=== PATIENT | female | born 1960 | race Caucasian/White ===

== ENCOUNTER → 2020-09-16 | Outpatient (CLI) | payer OTHER ==
[~2020-09-16] MED LIST: CLOB.05TO BOTHEARS; ZOLP5 PO
[2020-09-17 17:07] LABS: HPV 16 Negative (Negative); HPV 18 Negative (Negative); HPV OTHER HR TYPES Negative (Negative)
== END | disposition home or self-care (01) ==
LOC: LAB 13:51 → LAB SHORT 13:51
PROVIDERS: Obstetrics & Gynecology
DX: Z01.419 Encounter for gynecological examination (general) (routine) without abnormal findings (principal)
CPT/HCPCS: 87624; G0123

== ENCOUNTER → 2023-09-21 | Outpatient (CLI) | payer OTHER ==
[~2023-09-21] MED LIST changes: +ELIQUIS2.5 M1 PO; +HYDROCODONE-AC1 EA19 PO; +ONDA4ODT MM; +OXAYDO5 M1 PO
[2023-09-21 14:14] LABS: BASOPHILS ABSOLUTE AUTO 0.03 K/mm3 (0.00-0.23); BASOPHILS PERCENT AUTO 0 % (0-2); EOSINOPHILS ABSOLUTE AUTO 0.05 K/mm3 (0.00-0.68); EOSINOPHILS PERCENT AUTO 1 % (0-6); Hemoglobin 9.4 g/dL (11.5-16.0); IMMATURE GRAN ABSOLUTE AUTO 0.07 K/mm3 (0.00-0.10); IMMATURE GRAN PERCENT AUTO 1 % (0-1); LYMPHOCYTES ABSOLUTE AUTO 1.24 K/mm3 (0.84-5.20); LYMPHOCYTES PERCENT AUTO 12 % (21-46); MONOCYTES ABSOLUTE AUTO 0.81 K/mm3 (0.16-1.47); MONOCYTES PERCENT AUTO 8 % (4-13); Mean Corpuscular HGB 29.5 pg (26.0-34.0); Mean Corpuscular HGB Conc 31.3 g/dL (31.5-36.5); Mean Corpuscular Volume 94 fL (80-100); NEUTROPHILS ABSOLUTE AUTO 8.38 K/mm3 (1.96-9.15); NEUTROPHILS PERCENT AUTO 79 % (41-73); Platelet Count 634 K/mm3 (150-400); RDW Coefficient Variation 16.6 % (11.7-14.2); RDW Standard Deviation 55.7 fL (35.1-46.3); Red Blood Cell Count 3.19 M/mm3 (3.80-5.20); White Blood Cell Count 10.58 K/mm3 (4.00-11.30)
[2023-09-21 14:31] LABS: Albumin, Blood 2.7 g/dL (3.4-5.0); Albumin/Globulin Ratio 0.7 (0.8-1.8); Bilirubin, Total 0.3 mg/dL (0.1-1.0); Bun/Creatinine Ratio 24.2 (12.0-20.0); Calcium, Blood 8.7 mg/dL (8.5-10.1); Creatinine, Blood 0.5 mg/dL (0.40-1.00); Globulin, Blood 3.7 g/dL (2.2-4.0); Potassium, Blood 4.2 mmol/L (3.5-5.5); Total Protein, Blood 6.4 g/dL (6.4-8.2)
== END | disposition home or self-care (01) ==
LOC: LAB SHORT 12:32 → LAB 12:32
PROVIDERS: Internal Medicine Hematology & Oncology
DX: C56.9 Malignant neoplasm of unspecified ovary (principal)
CPT/HCPCS: 80053; 85025; 86304

== ENCOUNTER 2023-09-22 15:29 | Emergency (ER) | payer OTHER ==
[~2023-09-22] VITALS: Ht 170.2 cm; Wt 54.4 kg
[~2023-09-22 15:29] MED LIST changes: -ELIQUIS2.5 M1 PO; -HYDROCODONE-AC1 EA19 PO
[2023-09-22] MEDS ORDERED: Ketorolac Tromethamine 15mg Vial IV ONE (16:05)
[2023-09-22 16:22] LABS: BASOPHILS ABSOLUTE AUTO 0.04 K/mm3 (0.00-0.23); BASOPHILS PERCENT AUTO 0 % (0-2); EOSINOPHILS ABSOLUTE AUTO 0.09 K/mm3 (0.00-0.68); EOSINOPHILS PERCENT AUTO 1 % (0-6); Hematocrit 29.3 % (33.0-51.0); Hemoglobin 9.4 g/dL (11.5-16.0); IMMATURE GRAN ABSOLUTE AUTO 0.05 K/mm3 (0.00-0.10); IMMATURE GRAN PERCENT AUTO 1 % (0-1); LYMPHOCYTES ABSOLUTE AUTO 1.39 K/mm3 (0.84-5.20); LYMPHOCYTES PERCENT AUTO 15 % (21-46); MONOCYTES ABSOLUTE AUTO 0.71 K/mm3 (0.16-1.47); MONOCYTES PERCENT AUTO 8 % (4-13); Mean Corpuscular HGB 29.7 pg (26.0-34.0); Mean Corpuscular HGB Conc 32.1 g/dL (31.5-36.5); Mean Corpuscular Volume 93 fL (80-100); Mean Platelet Volume 8.5 fL (9.1-12.4); NEUTROPHILS ABSOLUTE AUTO 7.09 K/mm3 (1.96-9.15); NEUTROPHILS PERCENT AUTO 76 % (41-73); Platelet Count 551 K/mm3 (150-400); RDW Coefficient Variation 16.4 % (11.7-14.2); RDW Standard Deviation 55.1 fL (35.1-46.3); Red Blood Cell Count 3.16 M/mm3 (3.80-5.20); White Blood Cell Count 9.37 K/mm3 (4.00-11.30)
[2023-09-22 16:43] LABS: Albumin, Blood 2.6 g/dL (3.4-5.0); Albumin/Globulin Ratio 0.7 (0.8-1.8); Bilirubin, Total 0.2 mg/dL (0.1-1.0); Bun/Creatinine Ratio 18.5 (12.0-20.0); Calcium, Blood 8.4 mg/dL (8.5-10.1); Creatinine, Blood 0.54 mg/dL (0.40-1.00); Globulin, Blood 3.5 g/dL (2.2-4.0); Potassium, Blood 4.3 mmol/L (3.5-5.5); Total Protein, Blood 6.1 g/dL (6.4-8.2)
[2023-09-22] MEDS ORDERED: ELIQUIS2.5 M1 PO (19:15)
[2023-09-22] MEDS ORDERED: HYDROCODONE-AC1 EA19 PO (19:16)
[2023-09-22] MEDS ORDERED: HYDROmorphone HCl/Pf 1MG SYR IV ONE (19:30)
[2023-09-22] MEDS ORDERED: Piperacillin/Tazobactam Sod 3.375 GM in NS 100 ML IV ONE (21:50)
[2023-09-23 01:03] VITALS: BP 126/81
== END 2023-09-23 00:15 | disposition short-term general hospital (02) ==
LOC: ER 15:29
PROVIDERS: Physician Assistant
DX: K91.870 Postprocedural hematoma of a digestive system organ or structure following a digestive system procedure (principal); K56.609 Unspecified intestinal obstruction, unspecified as to partial versus complete obstruction; K59.00 Constipation, unspecified
CPT/HCPCS: 36415; 74018; 74177; 80053; 83605; 83690; 85025; 86140; 87040; 96365-59; 96375; 99285-25; J1170; J1885; J2543; Q9967

== ENCOUNTER 2024-09-24 17:46 | Emergency (ER) | payer OTHER ==
[~2024-09-24] VITALS: Ht 170.2 cm; Wt 54.4 kg
[~2024-09-24 17:46] MED LIST changes: +ELIQUIS2.5 M1 PO; +HYDMOR2 PO; +HYDROCODONE-AC1 EA19 PO
[2024-09-24 18:50] LABS: Hematocrit 28.4 % (33.0-51.0); Hemoglobin 9.4 g/dL (11.5-16.0); Mean Corpuscular HGB Conc 33.1 g/dL (31.5-36.5); Mean Corpuscular Volume 105 fL (80-100); NRBC ABSOLUTE 0.00 K/mm3 (0.00-0.02); NRBC Auto 0.0 /100 WBC (0.0-0.2); Platelet Count 129 K/mm3 (150-400); RDW Coefficient Variation 13.5 % (11.7-14.2); RDW Standard Deviation 51.5 fL (35.1-46.3)
[2024-09-24 19:21] LABS: BAND PERCENT MAN 24 % (0-8); BASOPHILS ABSOLUTE MAN 0.00 K/mm3 (0.00-0.23); BASOPHILS PERCENT MAN 0 % (0-2); EOSINOPHILS ABSOLUTE MAN 0.00 K/mm3 (0.00-0.68); EOSINOPHILS PERCENT MAN 0 % (0-6); LYMPHOCYTES ABSOLUTE MAN 0.30 K/mm3 (0.84-5.20); LYMPHOCYTES PERCENT MAN 6 % (21-46); METAMYELOCYTE ABSOLUTE MAN 0.05 K/mm3 (0.00-0.00); METAMYELOCYTE PERCENT MAN 1 % (0-0); MONOCYTES ABSOLUTE MAN 0.00 K/mm3 (0.16-1.47); MONOCYTES PERCENT MAN 0 % (4-13); NEUTROPHILS ABSOLUTE MAN 4.78 K/mm3 (1.96-9.15); SEG NEUTROPHILS PERCENT MAN 69 % (41-73)
[2024-09-24 19:22] LABS: Alanine Aminotransfer (ALT/SGP 33.0 U/L (12-78); Albumin, Blood 2.2 g/dL (3.4-5.0); Albumin/Globulin Ratio 0.5 (0.8-1.8); Anion Gap 5.0 mmol/L (3-11); Aspartate Aminotrans (AST/SGOT 61.0 U/L (12-37); Bilirubin, Total 0.4 mg/dL (0.1-1.0); Blood Urea Nitrogen 27.0 mg/dL (8-24); CO2, Blood 31.0 mmol/L (21-32); Calcium, Blood 8.8 mg/dL (8.5-10.1); Chloride, Blood 99.0 mmol/L (98-108); Creatinine, Blood 0.72 mg/dL (0.40-1.00); Globulin, Blood 4.7 g/dL (2.2-4.0); Glucose, Blood 141.0 mg/dL (70-99); Potassium, Blood 4.4 mmol/L (3.5-5.5); Sodium, Blood 131.0 mmol/L (136-145); Total Protein, Blood 6.9 g/dL (6.4-8.2)
[2024-09-24] MEDS ORDERED: NS 1,000 ML IV SCH (21:00)
[2024-09-24] MEDS ORDERED: HYDROmorphone HCl/Pf 1MG SYR IV ONE (21:00)
[2024-09-24] MEDS ORDERED: Piperacillin/Tazobactam Sod 4.5 GM in NS 100 ML IV ONE (23:15)
[2024-09-25 00:30] VITALS: BP 110/70
[2024-09-25] MEDS ORDERED: AMOCLA875 PO (00:37)
== END 2024-09-25 00:41 | disposition home or self-care (01) ==
LOC: ER 17:46
PROVIDERS: Student in an Organized Health Care Education/Training Program
DX: K63.1 Perforation of intestine (nontraumatic) (principal); C56.9 Malignant neoplasm of unspecified ovary; Z79.899 Other long term (current) drug therapy
CPT/HCPCS: 74177; 80053; 85025; 96361; 96365-59; 96375; 99284-25; J1171; J2543; J7030; Q9967

== ENCOUNTER 2024-11-20 04:30 | Day surgery (SDC) | payer OTHER ==
[2024-11-18 08:15] LABS: Hematocrit 19.5 % (33.0-51.0); Hemoglobin 6.4 g/dL (11.5-16.0); Mean Corpuscular HGB Conc 32.8 g/dL (31.5-36.5); Mean Corpuscular Volume 103 fL (80-100); NRBC ABSOLUTE 0.00 K/mm3 (0.00-0.02); NRBC Auto 0.0 /100 WBC (0.0-0.2); RDW Coefficient Variation 17.3 % (11.7-14.2); RDW Standard Deviation 64.5 fL (35.1-46.3)
[2024-11-18 08:24] LABS: Platelet Count 26 K/mm3 (150-400)
[2024-11-18 08:37] LABS: Alanine Aminotransfer (ALT/SGP 159.0 U/L (12-78); Albumin, Blood 3.0 g/dL (3.4-5.0); Albumin/Globulin Ratio 0.7 (0.8-1.8); Anion Gap 12.0 mmol/L (3-11); Aspartate Aminotrans (AST/SGOT 145.0 U/L (12-37); Bilirubin, Total 1.1 mg/dL (0.1-1.0); Blood Urea Nitrogen 14.0 mg/dL (8-24); CO2, Blood 26.0 mmol/L (21-32); Calcium, Blood 9.2 mg/dL (8.5-10.1); Chloride, Blood 102.0 mmol/L (98-108); Creatinine, Blood 0.55 mg/dL (0.40-1.00); Globulin, Blood 4.1 g/dL (2.2-4.0); Glucose, Blood 86.0 mg/dL (70-99); Potassium, Blood 3.6 mmol/L (3.5-5.5); Sodium, Blood 136.0 mmol/L (136-145); Total Protein, Blood 7.1 g/dL (6.4-8.2)
[2024-11-18 09:11] LABS: BAND PERCENT MAN 11 % (0-8); BASOPHILS ABSOLUTE MAN 0.00 K/mm3 (0.00-0.23); BASOPHILS PERCENT MAN 0 % (0-2); EOSINOPHILS ABSOLUTE MAN 0.00 K/mm3 (0.00-0.68); EOSINOPHILS PERCENT MAN 0 % (0-6); LYMPHOCYTES ABSOLUTE MAN 0.84 K/mm3 (0.84-5.20); LYMPHOCYTES PERCENT MAN 22 % (21-46); METAMYELOCYTE ABSOLUTE MAN 0.03 K/mm3 (0.00-0.00); METAMYELOCYTE PERCENT MAN 1 % (0-0); MONOCYTES ABSOLUTE MAN 0.46 K/mm3 (0.16-1.47); MONOCYTES PERCENT MAN 12 % (4-13); NEUTROPHILS ABSOLUTE MAN 2.50 K/mm3 (1.96-9.15); SEG NEUTROPHILS PERCENT MAN 54 % (41-73)
[~2024-11-20 04:30] MED LIST changes: +AMOCLA875 PO
[2024-11-20] MEDS ORDERED: NS 250 ML IV SCH (06:50)
[2024-11-20] MEDS ORDERED: TRAZ50 PO (13:38)
[2024-11-20] MEDS ORDERED: GABA100 PO (13:38)
[2024-11-20] MEDS ORDERED: ESTRADIOL0.5 MG PO (13:38)
[2024-11-20 13:50] VITALS: BP 112/69
[2024-11-20 14:10] VITALS: BP 104/58
[2024-11-20 15:23] VITALS: BP 97/61
[2024-11-20 15:58] VITALS: BP 113/68
[2024-11-20 16:15] VITALS: BP 109/54
[2024-11-20 17:17] VITALS: BP 116/69
== END 2024-11-20 17:55 | disposition home or self-care (01) ==
LOC: ATC 04:30 → EDSTATUS 13:30 → ATC 13:30
PROVIDERS: Internal Medicine Hematology & Oncology
DX: C56.3 Malignant neoplasm of bilateral ovaries (principal); C79.82 Secondary malignant neoplasm of genital organs; C78.6 Secondary malignant neoplasm of retroperitoneum and peritoneum; C78.5 Secondary malignant neoplasm of large intestine and rectum; C78.7 Secondary malignant neoplasm of liver and intrahepatic bile duct; D70.1 Agranulocytosis secondary to cancer chemotherapy; D64.81 Anemia due to antineoplastic chemotherapy; T45.1X5A Adverse effect of antineoplastic and immunosuppressive drugs, initial encounter; R53.0 Neoplastic (malignant) related fatigue; G62.9 Polyneuropathy, unspecified; G89.3 Neoplasm related pain (acute) (chronic); D69.6 Thrombocytopenia, unspecified; Z79.899 Other long term (current) drug therapy
CPT/HCPCS: 36415; 36430; 80053; 85025; 86304; 86850; 86900; 86901; 86923; J1642; J7050; P9016

== ENCOUNTER 2024-11-27 02:26 | Day surgery (SDC) | payer OTHER ==
[~2024-11-27 02:26] MED LIST changes: +ESTRADIOL0.5 MG PO; +GABA100 PO; +TRAZ50 PO
[2024-11-27] MEDS ORDERED: Lidocaine HCl 4% Cream 5 GM ONE (08:05)
== END 2024-11-27 23:00 | disposition home or self-care (01) ==
LOC: WOUND 02:26
DX: S31.103A Unspecified open wound of abdominal wall, right lower quadrant without penetration into peritoneal cavity, initial encounter (principal); K65.1 Peritoneal abscess; C56.9 Malignant neoplasm of unspecified ovary; X58.XXXA Exposure to other specified factors, initial encounter
CPT/HCPCS: A9270; G0463

== ENCOUNTER 2024-12-04 01:54 | Day surgery (SDC) | payer OTHER ==
[2024-12-04] MEDS ORDERED: Lidocaine HCl 4% Cream 5 GM ONE (09:15)
== END 2024-12-04 23:00 | disposition home or self-care (01) ==
LOC: WOUND 01:54
DX: T81.31XD Disruption of external operation (surgical) wound, not elsewhere classified, subsequent encounter (principal); K65.1 Peritoneal abscess; Z90.49 Acquired absence of other specified parts of digestive tract
CPT/HCPCS: A9270; G0463

== ENCOUNTER → 2024-12-08 | Outpatient (CLI) | payer OTHER ==
[2024-12-08 10:04] LABS: Hematocrit 29.8 % (33.0-51.0); Hemoglobin 9.9 g/dL (11.5-16.0); Mean Corpuscular HGB Conc 33.2 g/dL (31.5-36.5); Mean Corpuscular Volume 104 fL (80-100); NRBC ABSOLUTE 0.00 K/mm3 (0.00-0.02); NRBC Auto 0.0 /100 WBC (0.0-0.2); Platelet Count 118 K/mm3 (150-400); RDW Coefficient Variation 18.7 % (11.7-14.2); RDW Standard Deviation 71.4 fL (35.1-46.3)
[2024-12-08 10:12] LABS: Alanine Aminotransfer (ALT/SGP 86.0 U/L (12-78); Albumin, Blood 2.8 g/dL (3.4-5.0); Albumin/Globulin Ratio 0.7 (0.8-1.8); Anion Gap 14.0 mmol/L (3-11); Aspartate Aminotrans (AST/SGOT 97.0 U/L (12-37); Bilirubin, Total 1.4 mg/dL (0.1-1.0); Blood Urea Nitrogen 13.0 mg/dL (8-24); CO2, Blood 30.0 mmol/L (21-32); Calcium, Blood 9.4 mg/dL (8.5-10.1); Chloride, Blood 99.0 mmol/L (98-108); Creatinine, Blood 0.68 mg/dL (0.40-1.00); Globulin, Blood 4.0 g/dL (2.2-4.0); Glucose, Blood 123.0 mg/dL (70-99); Potassium, Blood 3.6 mmol/L (3.5-5.5); Sodium, Blood 139.0 mmol/L (136-145); Total Protein, Blood 6.8 g/dL (6.4-8.2)
[2024-12-08 10:36] LABS: BAND PERCENT MAN 19 % (0-8); BASOPHILS ABSOLUTE MAN 0.00 K/mm3 (0.00-0.23); BASOPHILS PERCENT MAN 0 % (0-2); EOSINOPHILS ABSOLUTE MAN 0.00 K/mm3 (0.00-0.68); EOSINOPHILS PERCENT MAN 0 % (0-6); LYMPHOCYTES % ATYPICAL MANUAL 0 % (0-0); LYMPHOCYTES ABSOLUTE MAN 0.65 K/mm3 (0.84-5.20); LYMPHOCYTES PERCENT MAN 6 % (21-46); MONOCYTES ABSOLUTE MAN 0.10 K/mm3 (0.16-1.47); MONOCYTES PERCENT MAN 1 % (4-13); NEUTROPHILS ABSOLUTE MAN 10.11 K/mm3 (1.96-9.15); SEG NEUTROPHILS PERCENT MAN 74 % (41-73)
== END ==
LOC: LAB SHORT 09:52 → LAB 09:52
PROVIDERS: Student in an Organized Health Care Education/Training Program
DX: R11.0 Nausea (principal)
CPT/HCPCS: 80053; 85025